=== PATIENT | male | born 1940 | race Caucasian/White ===

== ENCOUNTER 2018-06-19 13:32 | Emergency (ER) | payer MEDICARE ==
[2018-06-19 13:55] VITALS: RESP 18
[2018-06-19] MEDS ORDERED: Morphine 4 MG/ML VIAL IV STA (15:18)
[2018-06-19] MEDS ORDERED: Lidocaine 2% Inj (20ml) IJ ONE (15:19)
[2018-06-19] MEDS ORDERED: Tdap Vaccine 0.5 ml Vial (10-64 yrs) IM ONE ×2 (15:19→15:36)
[2018-06-19] MEDS ORDERED: Lidocaine PF 2% (5 ml) Inj (For Cardiac Arrhy) ONE ×2 (15:22→18:41)
[2018-06-19] MEDS ORDERED: Clindamycin 600mg/50ml D5W 600 MG/50 ML VIAL IVPB SCH (15:30)
--- NOTE | 2018-06-19 16:07 | ED PDOC ---
Upper Extremity Pain/Injury Time Seen by Provider: 06/19/18 14:31 Chief Complaint (Nursing): Abnormal Skin Integrity Chief Complaint (Provider): Hand laceration History Per: Patient History/Exam Limitations: no limitations Onset/Duration Of Symptoms: Hrs (1) Current Symptoms Are (Timing): Still Present Additional Complaint(s): 78 y/o M with hx of DM and hypothyroidism who presents after cutting his middle finger and ring finger with a table saw. He is not up to date on his tetanus vaccinations. He has some numbness in the middle finger. No wrist pain, fever. Past Medical History Reviewed: Historical Data, Nursing Documentation, Vital Signs Vital Signs: Last Vital Signs Temp 97.5 F L 06/19/18 13:53 Pulse 89 06/19/18 13:53 Resp 18 06/19/18 13:53 BP 182/84 H 06/19/18 13:53 Pulse Ox 99 06/19/18 13:53 - Medical History PMH: Diabetes, Hypothyroidism - Family History Family History: States: Unknown Family Hx - Home Medications Home Medications: Ambulatory Orders Medication Instructions Recorded Albuterol HFA [Ventolin HFA 90 1 puff IH ASDIR #1 unit 09/10/16 mcg/actuation (8 g)] Azithromycin [Zithromax] 250 mg PO DAILY #6 tab 09/10/16 RX: Benzonatate 200 mg PO TID PRN #20 capsule 09/10/16 RX: Clindamycin [Cleocin] 450 mg PO TID 5 Days cap 06/19/18 RX: Ibuprofen [Motrin Tab] 600 mg PO Q6 PRN 7 Days tab 06/19/18 - Allergies Allergies/Adverse Reactions: Allergies Allergy/AdvReac Type Severity Reaction Status Date / Time Penicillins Allergy Mild RASH Verified 06/19/18 13:53 Review of Systems Musculoskeletal: Positive for: Other (Left hand pain, bleeding at 3rd and 4th fingers) Physical Exam - Reviewed Nursing Documentation Reviewed: Yes Vital Signs Reviewed: Yes - Physical Exam Appears: Positive for: Uncomfortable Extremity: Positive for: Normal ROM (at DIP, PIP and wrist), Tenderness, Other (3rd digit with almost circumferential deep laceration (approx 1.5 - 2cm width) at distal 3rd digit, +bleeding and edema. No bones or tendons visible. Small avulsion at medial aspect of 4th digit. No further punctures noted after hand copiously irrigated between 1st and 2nd digits.) Neurologic/Psych: Positive for: Alert, Oriented - Laboratory Results Result Diagrams: 06/19/18 15:50 06/19/18 15:50 - ECG O2 Sat by Pulse Oximetry: 99 Medical Decision Making Medical Decision Making: Left hand x-ray Tetanus vaccine Clindamycin 500mg IV x 1 Morphine 2mg IV x 1 Lidocaine for digital nerve block for exploration of injury, done, no foreign body visible. Hand surgeon referral LEft hand x-ray: Multipart fracture distal phalanx 3rd digit. JOINTS: Normal. No osteoarthritic changes. SOFT TISSUES: Soft tissue swelling at the site of the injury 3rd digit. Questionable soft tissue swelling adjacent to the distal phalanx of the 4th digit. OTHER FINDINGS: Metallic foreign body common metal fragment in the soft tissues between the 1st and 2nd metacarpals. This is on the palm are aspect of the hand. IMPRESSION: Comminuted fracture distal phalanx 4th digit. Soft tissue swelling attests to the acuity of the fracture. Dr. Jacob Huddleston performed laceration repair. Pt ok for d/c home and f/u with Dr. Huddleston in office on 06/22. Return instructions given to patient and CD of X-ray given to discuss ? metal noted between 1st and 2nd digits w/o puncture wound noted in that area on exam. Disposition - Clinical Impression Clinical Impression: Fracture, finger, multiple sites - Patient ED Disposition Is Patient to be Admitted: No Discussed With Dr.: Jacob Huddleston Doctor Will See Patient In The: ED Counseled Patient/Family Regarding: Studies Performed, Diagnosis, Need For Followup, Rx Given - Disposition Referrals: Jacob Huddleston MD [Medical Doctor] - Disposition: Routine/Home Disposition Time: 20:32 Condition: STABLE Additional Instructions: Keep area covered and dry for the next 24hrs and then remove dressing and wash gently with soap and water. Use Bacitracin and continue to cover the wound when out in public otherwise leave open to the air. F/u with Dr. Jacob Huddleston on Friday 06/22. Take antibiotics as prescribed to prevent infection. Discuss X-ray findings with Dr. Huddleston when you see him. Prescriptions: RX: Clindamycin [Cleocin] 450 mg PO TID 5 Days cap RX: Ibuprofen [Motrin Tab] 600 mg PO Q6 PRN 7 Days tab PRN Reason: Pain, Moderate (4-7) Instructions: Finger Fracture (DC) Forms: [facility] (Swedish) Print Language: HUNGARIAN
[2018-06-19 16:20] LABS: BASO % 0.9 % (0.0-2.0); EOS # 0.1 K/uL (0.0-0.7); EOS % 1.6 % (0.0-4.0); HEMOGLOBIN 13.3 g/dL (12.0-18.0); LYMPH # 1.3 K/uL (1.0-4.3); LYMPH % 29.5 % (20.0-40.0); MEAN CELL VOLUME 88.1 fl (80.0-94.0); MEAN CORPUSCULAR HEMOGLOBIN 29.3 pg (27.0-31.0); MEAN CORPUSCULAR HGB CONC 33.2 g/dL (33.0-37.0); MEAN PLATELET VOLUME 8.8 fl (7.2-11.7); MONO # 0.3 K/uL (0.0-0.8); MONO % 7.6 % (0.0-10.0); NEUT # 2.7 K/uL (1.8-7.0); NEUT % 60.4 % (50.0-75.0); NRBC % 0.3 % (0.0-0.0); RBC 4.54 Mil/uL (4.40-5.90); RED CELL DISTRIBUTION WIDTH 13.4 % (11.5-14.5); WHITE BLOOD COUNT 4.5 K/uL (4.8-10.8)
--- NOTE | 2018-06-19 16:44 | RAD ---
PROCEDURE: Left Hand Radiographs. HISTORY: table saw injury lacerations trauma COMPARISON: None. FINDINGS: BONES: Multipart fracture distal phalanx 3rd digit. JOINTS: Normal. No osteoarthritic changes. SOFT TISSUES: Soft tissue swelling at the site of the injury 3rd digit. Questionable soft tissue swelling adjacent to the distal phalanx of the 4th digit. OTHER FINDINGS: Metallic foreign body common metal fragment in the soft tissues between the 1st and 2nd metacarpals. This is on the palm are aspect of the hand. IMPRESSION: Comminuted fracture distal phalanx 4th digit. Soft tissue swelling attests to the acuity of the fracture.
[2018-06-19 16:57] LABS: BLOOD UREA NITROGEN 25 mg/dl (9-20); GFR NON-AFRICAN AMERICAN 59
[2018-06-19 16:58] LABS: ALB/GLOB RATIO 1.3 (1.0-2.1); ALBUMIN 4.4 g/dL (3.5-5.0); ALT/SGPT 47 U/L (21-72); AST/SGOT 28 U/L (17-59); CALCIUM 9.4 mg/dL (8.4-10.2)
[2018-06-19] MEDS ORDERED: LIDOCAINE 2% 10ML 20 MG/ML VIAL IJ STA (18:37)
[2018-06-19 20:23] VITALS: BP 143/87; PULSE 72; TEMP 98.3
[2018-06-19 21:29] VITALS: O2SAT 99
--- NOTE | 2018-06-24 23:06 | CON ---
DATE: 06/19/2018 REASON FOR CONSULTATION: Left third digit open wound. HISTORY OF PRESENT ILLNESS: This is a 78-year-old male, who sustained a saw laceration to the tip of his left third digit. He presents to the [facility] for open wound and partial finger amputation. I was consulted for evaluation and treatment. The patient was seen in bedside in the emergency room, underwent an initial evaluation and also closure of the wound. PHYSICAL EXAMINATION: EXTREMITIES: Left third digit, there is a curvilinear full-thickness flap laceration of the palmar aspect of the distal phalanx with also partial loss of nail. The patient can actively flex his MP, PIP, and DIP joint. He has good capillary refills. The flap is still partially attached to the finger and good capillary perfusion. There is loss of sensation to the tip of the finger. The patient also has a small abrasion over the fourth digit, superficial. IMAGING: X-rays of the finger and hand were seen and reviewed, show comminuted distal phalanx fracture, extra-articular with partial loss of bone. There is also an old foreign body metallic object at the first webspace. ASSESSMENT: Left third digit complex wound with distal phalanx fracture. PLAN: I discussed the above findings with the patient. At this time, I recommended irrigation and debridement with closure of his wound. The informed consent was obtained. The patient underwent the following procedure in the emergency room. PROCEDURE: 1. Repair of complex wound of the finger, 5 cm in length, [address]. 2. Debridement of open fracture of the tip of the finger, muscle, bone and fascia, 13277. 3. Exploration of open wound, . DESCRIPTION OF PROCEDURE: Left third digit was prepped and draped in sterile surgical fashion. Lidocaine 3 mL digital block was given. The left third digit wound was then explored. The wound measured 5 cm in length. It was curvilinear over the volar aspect of the distal phalanx. The wound was explored. The FDP tendon was identified and was intact. The wound was then copiously irrigated with normal saline and washed out thoroughly. Next work was begun on repairing of the complex wound. The flap tissue was realigned back to its anatomic placement and fixed with multiple 4-0 Monocryl sutures, interrupted. There was no tension at the repair site. The flap tissues still have good capillary refills. Sterile dressing was then applied with Xeroform, 4x4, and Rios. The patient was given prophylactic antibiotics and was recommended to follow up in 2-3 days in my office. Jacob Huddleston MD [facility]
== END 2018-06-19 20:15 | disposition home or self-care (01) ==
LOC: H.ER 13:32
DX: S62.635A Displaced fracture of distal phalanx of left ring finger, initial encounter for closed fracture (principal); Z23 Encounter for immunization; S61.213A Laceration without foreign body of left middle finger without damage to nail, initial encounter; W31.2XXA Contact with powered woodworking and forming machines, initial encounter; E11.9 Type 2 diabetes mellitus without complications; Z88.0 Allergy status to penicillin
CPT/HCPCS: 12001; 73130; 80053; 85025; 90471; 90715; 96374; 96375; 99285; J2270